=== PATIENT | male | born 1965 | race Two or more races ===

== ENCOUNTER 2025-06-26 13:48 | Emergency (ER) | payer OTHER ==
[~2025-06-26] VITALS: Ht 167.6 cm; Wt 73.5 kg
[2025-06-26] MEDS ORDERED: KETOROLAC TROMETHAMINE 30 MG VIAL IM STA (15:13)
[2025-06-26] MEDS ORDERED: KETOROLAC TROMETHAMINE 30 MG VIAL ONE (15:15)
== END 2025-06-26 16:24 | disposition home or self-care (01) ==
LOC: ER 13:48
DX: M25.511 Pain in right shoulder (principal); M85.811 Other specified disorders of bone density and structure, right shoulder

== ENCOUNTER 2025-07-03 09:06 | Outpatient (CLI) | payer OTHER | END 2025-07-03 09:12 | disposition home or self-care (01) | LOC: SONOGRAMA 09:06 | DX: N28.1 Cyst of kidney, acquired (principal); N20.0 Calculus of kidney; M75.101 Unspecified rotator cuff tear or rupture of right shoulder, not specified as traumatic ==